=== PATIENT | female | born 1950 | race Caucasian/White ===

== ENCOUNTER → 2017-12-26 | Outpatient (CLI) | payer MEDICARE, BC, MEDICAID ==
[2017-12-26 09:26] LABS: BLOOD UREA NITROGEN 13 mg/dl (7-20)
[2017-12-26 09:26] LABS: CREATININE 0.49 mg/dl (0.44-1.00)
[2017-12-26] MEDS: SOD CHLORIDE 0.9% 100 ML (10:45)
[2017-12-26] MEDS: IODIXANOL LOCM 100 ML BTL (10:46)
== END | disposition home or self-care (01) ==
LOC: LAB 08:14
DX: I65.21 Occlusion and stenosis of right carotid artery (principal)
CPT/HCPCS: 70498; 82565; 84520